=== PATIENT | female | born 1975 | race Two or more races ===

== ENCOUNTER → 2024-06-11 | Outpatient (CLI) | payer BC ==
[2024-06-11 14:50] LABS: BASO # 0.1 10^3/uL (0.0-0.2); EOS # 0.2 10^3/uL (0.0-0.5); EOS % 2.7 % (0.0-3.0); HEMATOCRIT 40.9 % (36.0-47.0); HEMOGLOBIN 13.7 g/dl (12.0-15.5); LYMPH # 2.1 10^3/uL (1.5-5.0); LYMPH % 29.6 % (24.0-44.0); MEAN CORPUSCULAR HEMOGLOBIN 30.6 pg (27.0-33.0); MEAN CORPUSCULAR HGB CONC 33.5 g/dl (32.0-36.5); MEAN CORPUSCULAR VOLUME 91.3 fl (80.0-96.0); MONO # 0.8 10^3/uL (0.0-0.8); MONO % 10.6 % (2.0-8.0); NEUTROPHILS # 3.9 10^3/uL (1.5-8.5); NEUTROPHILS % 55.8 % (36.0-66.0); PLATELET COUNT, AUTOMATED 365 10^3/uL (150-450); RED BLOOD COUNT 4.48 10^6/uL (4.00-5.40); WHITE BLOOD COUNT 7.1 10^3/uL (4.0-10.0)
[2024-06-11 15:23] LABS: ALKALINE PHOSPHATASE 69 U/L (46-116); ALT/SGPT 11 U/L (7.0-40); AST/SGOT < 8 U/L (<34); BILIRUBIN,TOTAL 0.4 MG/DL (0.3-1.2); BLOOD UREA NITROGEN 14 MG/DL (9-23); CALCIUM LEVEL 10.2 MG/DL (8.5-10.1); CARBON DIOXIDE LEVEL 28 MMOL/L (20-31); CHLORIDE LEVEL 104 MMOL/L (98-107); CREATININE FOR GFR 0.69 MG/DL (0.55-1.30); GLOMERULAR FILTRATION RATE > 60.0 (>58); GLUCOSE, FASTING 82 MG/DL (60-100); POTASSIUM SERUM 4.9 MMOL/L (3.5-5.1); SODIUM LEVEL 137 MMOL/L (136-145); TOTAL PROTEIN 6.8 G/DL (5.7-8.2)
== END ==
LOC: M PLALAB 12:56
PROVIDERS: ATTEND Student in an Organized Health Care Education/Training Program
DX: Z76.89 Persons encountering health services in other specified circumstances (principal)

== ENCOUNTER → 2024-12-28 | Outpatient (CLI) | payer BC ==
[2024-12-28 14:58] LABS: HEMATOCRIT 36.8 % (36.0-47.0)
[2024-12-28 15:03] LABS: HEMOGLOBIN A1c 5.3 % (4.0-6.0)
[2024-12-28 15:06] LABS: CHOLESTEROL RISK RATIO 4.38 (<5); FREE T4 0.95 NG/DL (0.89-1.76); LDL CHOLESTEROL 161.2 MG/DL (<100); THYROID STIMULATING HORMONE 1.471 uIU/ML (0.55-4.78)
== END ==
LOC: M PLALAB 09:32
PROVIDERS: ATTEND Student in an Organized Health Care Education/Training Program
DX: F10.10 Alcohol abuse, uncomplicated (principal); Z86.39 Personal history of other endocrine, nutritional and metabolic disease; Z76.89 Persons encountering health services in other specified circumstances; F41.9 Anxiety disorder, unspecified

== ENCOUNTER 2025-05-20 09:31 | Emergency (ER) | payer BC ==
[~2025-05-20] VITALS: Ht 162.6 cm; Wt 70.0 kg
[2025-05-20] MEDS ORDERED: VILO150C PO (09:50)
[2025-05-20] MEDS ORDERED: FLUO-365 PO (09:50)
[2025-05-20] MEDS ORDERED: GUAN1TAB17 PO (09:50)
[2025-05-20] MEDS ORDERED: LORA1TAB23 PO (09:50)
[2025-05-20] MEDS ORDERED: semaglutide (09:55)
[2025-05-20 10:25] LABS: BASO # 0.0 10^3/uL (0.0-0.2); BASO % 0.4 % (0.0-1.0); EOS # 0.0 10^3/uL (0.0-0.5); EOS % 0.1 % (0.0-3.0); LYMPH # 1.0 10^3/uL (1.5-5.0); LYMPH % 11.0 % (24.0-44.0); MONO # 0.5 10^3/uL (0.0-0.8); MONO % 5.7 % (2.0-8.0); NEUTROPHILS # 7.5 10^3/uL (1.5-8.5); NEUTROPHILS % 82.6 % (36.0-66.0); PLATELET COUNT, AUTOMATED 438 10^3/uL (150-450)
[2025-05-20] MEDS: ONDANSETRON 4MG 2ML VIAL IV ONE (10:25)
[2025-05-20] MEDS: KETOROLAC 30 MG/ML 1 ML VIAL IV ONE (10:25)
[2025-05-20] MEDS: NS (Normal Saline) 0.9% 1,000 ML IV ONE (10:26)
[2025-05-20] MEDS: ACETAMINOPHEN *IV* 1,000 MG in IV 1 EA IV ONE (10:26)
[2025-05-20 10:58] LABS: ALT/SGPT 20 U/L (7.0-40); AST/SGOT 19 U/L (<34); CALCIUM LEVEL 9.7 MG/DL (8.5-10.1); CARBON DIOXIDE LEVEL 24 MMOL/L (20-31); CHLORIDE LEVEL 98 MMOL/L (98-107); CREATININE FOR GFR 0.68 MG/DL (0.55-1.30); GLOMERULAR FILTRATION RATE > 90.0 (>58); POTASSIUM SERUM 4.4 MMOL/L (3.5-5.1); SODIUM LEVEL 135 MMOL/L (136-145)
[2025-05-20] MEDS ORDERED: ISOVUE-370 76% 100 ML VIAL As Ordered ONE (11:31)
[2025-05-20] MEDS ORDERED: MULTTAB20 PO (11:48)
[2025-05-20] MEDS ORDERED: SEMA0.257 SQ (11:48)
[2025-05-20] MEDS ORDERED: HOME MED LIST COMPLETE! XX SCH (11:50)
[2025-05-20] MEDS ORDERED: ONDA-282 PO (22:07)
[2025-05-20 22:43] VITALS: BP 115/63; O2SAT 97
== END 2025-05-20 23:17 | disposition home or self-care (01) ==
LOC: M ED 09:31
DX: K52.9 Noninfective gastroenteritis and colitis, unspecified (principal); K83.8 Other specified diseases of biliary tract; F41.9 Anxiety disorder, unspecified; Z88.1 Allergy status to other antibiotic agents; Z79.4 Long term (current) use of insulin; Z79.899 Other long term (current) drug therapy; Z79.810 Long term (current) use of selective estrogen receptor modulators (SERMs)
CPT/HCPCS: 74177; 74181; 80047; 80048; 80076; 83690; 85025; 93005; 96365; 96366; 96375; 96376; 99285; J0131; J1885; J2060; J2405; J2765; Q9967

== ENCOUNTER → 2025-06-08 | Outpatient (CLI) | payer BC ==
[~2025-06-08] MED LIST: FLUO-365 PO; GUAN1TAB17 PO; LORA1TAB23 PO; MULTTAB20 PO; ONDA-282 PO; SEMA0.257 SQ; VILO150C PO; semaglutide
== END ==
LOC: M WHC 07:02
PROVIDERS: ATTEND Obstetrics & Gynecology
DX: R10.20 Pelvic and perineal pain unspecified side (principal)

== ENCOUNTER → 2025-06-09 | Outpatient (CLI) | payer BC ==
[2025-06-09 18:09] LABS: PLATELET COUNT, AUTOMATED 406 10^3/uL (150-450)
[2025-06-09 18:26] LABS: ESTIMATED AVERAGE GLUCOSE 105.0 MG/DL (60-110)
[2025-06-09 18:34] LABS: LUTEINIZING HORMONE 4.7 mIU/ML
[2025-06-09 18:35] LABS: ESTRADIOL 81.1 PG/ML
== END ==
LOC: M PLALAB 16:42
PROVIDERS: ATTEND Obstetrics & Gynecology
DX: N95.1 Menopausal and female climacteric states (principal)

== ENCOUNTER → 2025-07-05 | Outpatient (REF) | payer BC ==
[2025-07-08 16:03] LABS: HPV APTIMA Not Detected (Not Detected)
== END ==
LOC: M SFHCWAGY 15:12
PROVIDERS: ATTEND Obstetrics & Gynecology
DX: Z12.4 Encounter for screening for malignant neoplasm of cervix (principal); N93.9 Abnormal uterine and vaginal bleeding, unspecified
CPT/HCPCS: 87624; 88305; G0123